=== PATIENT | male | born 2005 | race Caucasian/White ===

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

== ENCOUNTER 2023-08-24 03:30 | Emergency (ER) | payer MEDICAID ==
[2023-08-24] MEDS: Diphtheria,Pertussis(Acell),Tetanus Vaccine 0.5 ML Syringe IM ONE (04:23)
[2023-08-24] MEDS: Lidocaine 1% with EPINEPHrine 1:100,000 20 ML MDV INJECT ONE (04:24)
== END 2023-08-24 04:43 | disposition home or self-care (01) ==
LOC: JP.ED 03:30
DX: S51.811A Laceration without foreign body of right forearm, initial encounter (principal); Z23 Encounter for immunization; W26.0XXA Contact with knife, initial encounter; Y93.89 Activity, other specified
CPT/HCPCS: 12001; 90471; 90715; 99282-25